=== PATIENT | female | born 1960 | race Caucasian/White ===

== ENCOUNTER → 2017-06-19 | Outpatient (CLI) | payer OTHER ==
--- NOTE | 2017-06-20 11:19 | MM ---
Reason for exam: screening (asymptomatic). Last mammogram was performed 1 year and 3 months ago. History: Patient is postmenopausal. Benign stereotactic core biopsy of the left breast, September 06, 2003. Core biopsy of the left breast. Physical Findings: A clinical breast exam by your physician is recommended on an annual basis and results should be correlated with mammographic findings. MG Screening Mammo w CAD Bilateral CC and MLO view(s) were taken. Prior study comparison: March 05, 2016, bilateral MG screening mammo w CAD. August 20, 2014, bilateral MG screening mammo w CAD. January 06, 2013, bilateral digital screening mammo w/CAD. The breast tissue is extremely dense which could obscure a lesion on mammography. Finding: There are typically benign grouped/clustered calcifications in the left breast at biopsy clip. Previous mammotome biopsy in the left breast. ASSESSMENT: Benign, BI-RAD 2 RECOMMENDATION: Routine screening mammogram of both breasts in 1 year.
== END | disposition home or self-care (01) ==
LOC: RADMAMWWP 07:13
PROVIDERS: ATTEND Family Medicine
DX: Z12.31 Encounter for screening mammogram for malignant neoplasm of breast (principal)

== ENCOUNTER 2018-05-28 10:29 | Day surgery (SDC) | payer OTHER ==
[2018-05-23 14:17] VITALS: BMI 20.8
[~2018-05-28 10:29] MED LIST: LACTATED RINGERS 1,000 ML IV SCH
[2018-05-28 11:21] VITALS: RESP 16; TEMP 97.5
[2018-05-28] MEDS ORDERED: LIDOCAINE 1% 20 ML VIAL (10MG/ML) FOR IV START INTRADERMA ONE (11:21)
[2018-05-28] MEDS ORDERED: PROPOFOL 10 MG/ML 20 ML VIAL IV ONE (12:01)
--- NOTE | 2018-05-28 12:16 | P.PCN ---
Date of Procedure: 05/28/18 Procedure(s) Performed: BRIEF HISTORY: Patient is a 57-year-old pleasant white female, scheduled for an elective colonoscopy as a part of screening for colorectal neoplasia.\ PROCEDURE PERFORMED: Colonoscopy. PREOPERATIVE DIAGNOSIS: Screening for colon cancer. IV sedation per Anesthesia. PROCEDURE: After informed consent was obtained, the patient, was brought into the endoscopy unit. IV sedation was administered by Anesthesia under continuous monitoring. Digital rectal examination was normal. Initially the Olympus CF- 160 flexible video colonoscope was then inserted in the rectum, gradually advanced into the cecum without any difficulty. Careful examination was performed as the scope was gradually being withdrawn. Ileocecal valve and the appendiceal orifice were visualized and appeared normal. Prep was excellent. Mucosa of the cecum, ascending colon, transverse colon, descending colon, sigmoid colon, and rectum appeared normal. Retroflexion was performed in the rectum and small internal hemorrhoids were seen. The patient tolerated the procedure well. IMPRESSION: Normal-appearing colon from rectum to cecum with no evidence of colorectal neoplasia . RECOMMENDATIONS: Findings of this examination were discussed with the patient as well as a family. She was advised to have a repeat screening colonoscopy in 10 years.
[2018-05-28 12:42] VITALS: BP 123/64; PULSE 72
== END 2018-05-28 13:08 | disposition home or self-care (01) ==
LOC: ORWHC2ENDO 10:29
PROVIDERS: ATTEND Internal Medicine Gastroenterology
DX: Z12.11 Encounter for screening for malignant neoplasm of colon (principal); E07.9 Disorder of thyroid, unspecified; K64.8 Other hemorrhoids; Z79.899 Other long term (current) drug therapy
CPT/HCPCS: 45378; J2704

== ENCOUNTER → 2018-09-02 | Outpatient (CLI) | payer OTHER ==
--- NOTE | 2018-09-03 11:29 | MM ---
Reason for exam: screening (asymptomatic). Last mammogram was performed 1 year and 2 months ago. History: Patient is postmenopausal. Benign stereotactic core biopsy of the left breast, September 06, 2003. Core biopsy of the left breast. Physical Findings: A clinical breast exam by your physician is recommended on an annual basis and results should be correlated with mammographic findings. MG Screening Mammo w CAD Bilateral CC and MLO view(s) were taken. Prior study comparison: June 19, 2017, bilateral MG screening mammo w CAD. March 05, 2016, bilateral MG screening mammo w CAD. The breast tissue is heterogeneously dense. This may lower the sensitivity of mammography. Previous mammotome biopsy in the left breast. No significant changes when compared with prior studies. ASSESSMENT: Negative, BI-RAD 1 RECOMMENDATION: Routine screening mammogram of both breasts in 1 year.
== END | disposition home or self-care (01) ==
LOC: RADMAMWWP 07:13
PROVIDERS: ATTEND Family Medicine
DX: Z12.31 Encounter for screening mammogram for malignant neoplasm of breast (principal)
CPT/HCPCS: 77067

== ENCOUNTER → 2019-12-15 | Outpatient (CLI) | payer OTHER ==
--- NOTE | 2019-12-16 11:44 | MM ---
Reason for exam: screening (asymptomatic). Last mammogram was performed 1 year and 3 months ago. History: Patient is postmenopausal. Benign stereotactic core biopsy of the left breast, September 06, 2003. Core biopsy of the left breast. Physical Findings: A clinical breast exam by your physician is recommended on an annual basis and results should be correlated with mammographic findings. MG 3D Screening Mammo W/Cad Bilateral CC and MLO view(s) were taken. Prior study comparison: September 02, 2018, bilateral MG screening mammo w CAD. June 19, 2017, bilateral MG screening mammo w CAD. The breast tissue is extremely dense which could obscure a lesion on mammography. No suspicious abnormality. Left biopsy marker noted. ASSESSMENT: Negative, BI-RAD 1 RECOMMENDATION: Routine screening mammogram of both breasts in 1 year.
== END | disposition home or self-care (01) ==
LOC: RADMAMWWP 07:15
PROVIDERS: ATTEND Family Medicine
DX: Z12.31 Encounter for screening mammogram for malignant neoplasm of breast (principal)
CPT/HCPCS: 77063; 77067

== ENCOUNTER → 2021-01-27 | Outpatient (CLI) | payer OTHER ==
--- NOTE | 2021-01-30 12:29 | MM ---
Reason for exam: screening (asymptomatic). Last mammogram was performed 1 year and 1 month ago. History: Patient is postmenopausal. Benign stereotactic core biopsy of the left breast, September 06, 2003. Core biopsy of the left breast. Physical Findings: A clinical breast exam by your physician is recommended on an annual basis and results should be correlated with mammographic findings. MG Screening Mammo w CAD Bilateral CC and MLO view(s) were taken. Prior study comparison: December 15, 2019, bilateral MG 3d screening mammo w/cad. September 02, 2018, bilateral MG screening mammo w CAD. The breast tissue is heterogeneously dense. This may lower the sensitivity of mammography. There is no discrete abnormality. No significant changes when compared with prior studies. ASSESSMENT: Negative, BI-RAD 1 RECOMMENDATION: Routine screening mammogram of both breasts in 1 year.
== END | disposition home or self-care (01) ==
LOC: RADMAMWWP 07:35
PROVIDERS: ATTEND Family Medicine
DX: Z12.31 Encounter for screening mammogram for malignant neoplasm of breast (principal); Z78.0 Asymptomatic menopausal state
CPT/HCPCS: 77067

== ENCOUNTER → 2022-01-29 | Outpatient (CLI) | payer OTHER ==
--- NOTE | 2022-01-30 11:45 | MM ---
Reason for exam: screening (asymptomatic). Last mammogram was performed 1 year ago. History: Patient is postmenopausal. Benign stereotactic core biopsy of the left breast, September 06, 2003. Core biopsy of the left breast. Physical Findings: A clinical breast exam by your physician is recommended on an annual basis and results should be correlated with mammographic findings. MG Screening Mammo w CAD Bilateral CC and MLO view(s) were taken. Prior study comparison: January 27, 2021, bilateral MG screening mammo w CAD. December 15, 2019, bilateral MG 3d screening mammo w/cad. The breast tissue is heterogeneously dense. This may lower the sensitivity of mammography. Previous mammotome biopsy in the left breast. There is no discrete abnormality. ASSESSMENT: Benign, BI-RAD 2 RECOMMENDATION: Routine screening mammogram of both breasts in 1 year.
== END | disposition home or self-care (01) ==
LOC: RADMAMWWP 07:21
PROVIDERS: ATTEND Family Medicine
DX: Z12.31 Encounter for screening mammogram for malignant neoplasm of breast (principal)
CPT/HCPCS: 77067

== ENCOUNTER → 2023-02-27 | Outpatient (CLI) | payer BC ==
--- NOTE | 2023-02-27 11:39 | MM ---
Reason for Exam: Screening (asymptomatic). Last mammogram was performed 1 year(s) and 1 month(s) ago. Patient History: Menarche at age 17. First Full-Term at age 31. Hysterectomy at age 46. Postmenopausal. Core Biopsy on the Left side. 09/06/2003, Benign Stereotactic Core Biopsy on the left side. Risk Values: Sumi 5 year model risk: 2.2%. NCI Lifetime model risk: 10.9%. Prior Study Comparison: 12/15/2019 Bilateral Screening Mammogram, [facility]. 01/27/2021 Bilateral Screening Mammogram, [facility]. 01/29/2022 Bilateral Screening Mammogram, [facility]. Tissue Density: The breast tissue is heterogeneously dense. This may lower the sensitivity of mammography. Findings: Analyzed By CAD. There is no suspicious group of microcalcifications or new suspicious mass in either breast. Previous mammotome biopsy in the left breast. Overall Assessment: Benign, BI-RAD 2 Management: Screening Mammogram of both breasts in 1 year. A clinical breast exam by your physician is recommended on an annual basis and results should be correlated with mammographic findings. Electronically signed and approved by: Manny Nelson D.O.
== END | disposition home or self-care (01) ==
LOC: RADMAMWWP 07:37
PROVIDERS: ATTEND Family Medicine
DX: Z12.31 Encounter for screening mammogram for malignant neoplasm of breast (principal); Z78.0 Asymptomatic menopausal state
CPT/HCPCS: 77067

== ENCOUNTER → 2023-07-29 | Outpatient (CLI) | payer BC ==
--- NOTE | 2023-07-29 09:44 | BD ---
EXAMINATION TYPE: Axial Bone Density DATE OF EXAM: 07/29/2023 CLINICAL HISTORY: 63 years old Female. ICD-10 CODE: M81.0 OSTEOPOROSIS Height: 60.8 Weight: 110 FRAX RISK QUESTIONS: nothing to note here. RISK FACTORS HISTORY OF: Postmenopausal woman: yes, at about..unsure, hyst at age 48 yrs old Hyperparathyroidism: no Adrenal Insufficiency: no MEDICATIONS: Thyroid Medications: yes, for about 20 yrs, synthroid product Osteoporosis Medications: yes, alendronate, 6 yrs Additional Medications: cholesterol meds, bp meds, vit d, Additional History: cholesterol, thyroid, osteporosis/peia, scoliosis, EXAM MEASUREMENTS: Bone mineral densitometry was performed using the [employer] System. Bone mineral density as measured about the Lumbar spine is: ----- L1-L4(G/cm2): 0.979 T Score Values are as follows: ----- L1: -2.2 ----- L2: -2.2 ----- L3: -1.4 ----- L4: -1.1 ----- L1-L4: -1.7 Z Score Values are as follows: ----- L1: -0.4 ----- L2: -0.4 ----- L3: 0.4 ----- L4: 0.6 ----- L1-L4: 0.1 Bone mineral density first dexa study at [facility]. Bone mineral density about the R hip (g/cm2): 0.782 Bone mineral density about the L hip (g/cm2): 0.821 T Score values are as follows: -----R Neck: -1.9 -----L Neck: -2.2 -----R Total: 1.8 -----L Total: -1.5 Z Score values are as follows: -----R Neck: -0.3 -----L Neck: -0.3 -----R Total: -0.5 -----L Total: -0.1 Bone mineral density first bone density at [facility]. FRAX%s: The graph provided illustrates a 9.8% chance for a major osteoporotic fx and a 1.6% chance fo r the hips probability for fx in 10 years time. IMPRESSION: Osteopenia (T Score between -2.5 and -1). There is slightly increased risk of fracture and the patient may be considered for treatment. Re-Screen 2-5 years. NOTE: T-SCORE=SD OF THE YOUNG ADULT MEAN.
== END | disposition home or self-care (01) ==
LOC: RADBDWWP 07:19
PROVIDERS: ATTEND Family Medicine
DX: M85.89 Other specified disorders of bone density and structure, multiple sites (principal); Z78.0 Asymptomatic menopausal state
CPT/HCPCS: 77080

== ENCOUNTER → 2023-10-23 | Outpatient (CLI) | payer BC ==
--- NOTE | 2023-10-24 11:01 | NM ---
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 FINDINGS: There is markedly diminished and heterogeneous uptake of activity throughout the gland. Th e 4 hour iodine uptake is calculated at 1.2% (normal range 8-14%). The 24-hour iodine uptake is calcu lated at 0.9% (normal range 15-35%). IMPRESSION: 1. Severe hypothyroid. Markedly diminished uptake throughout the bilateral thyroid greater on the lef t. Correlate with thyroid ultrasound if there is concern for thyroid nodule.
== END | disposition home or self-care (01) ==
LOC: RADNMMAIN 08:41
PROVIDERS: ATTEND Family Medicine
DX: E05.00 Thyrotoxicosis with diffuse goiter without thyrotoxic crisis or storm (principal)
CPT/HCPCS: 78014; A9516

== ENCOUNTER → 2024-08-26 | Outpatient (CLI) | payer BC ==
--- NOTE | 2024-08-26 08:03 | MM ---
Reason for Exam: Screening (asymptomatic). Last mammogram was performed 1 year(s) and 6 month(s) ago. Patient History: Menarche at age 17. First Full-Term at age 31. Hysterectomy at age 46. Postmenopausal. Core Biopsy on the Left side. 09/06/2003, Benign Stereotactic Core Biopsy on the left side. Risk Values: Sumi 5 year model risk: 2.3%. NCI Lifetime model risk: 10.3%. Prior Study Comparison: 01/27/2021 Bilateral Screening Mammogram, [facility]. 01/29/2022 Bilateral Screening Mammogram, [facility]. 02/27/2023 Bilateral MG screening mammo w CAD, [facility]. Tissue Density: The breasts are extremely dense, which lowers the sensitivity of mammography. Findings: Analyzed By CAD. Asymmetric densities in the central aspect of the breast bilaterally for which spot compression views are recommended. No suspicious grouped calcifications. Biopsy clip in the left breast is noted. Overall Assessment: Incomplete: need additional imaging evaluation, BI-RAD 0 Management: Diagnostic Mammogram of both breasts. . Patient should continue monthly self-breast exams. A clinical breast exam by your physician is recommended on an annual basis. This exam should not preclude additional follow-up of suspicious palpable abnormalities. Note on Sumi scores and lifetime risk: 1. A Sumi score greater than 3% is considered moderate risk. If this is the case, consider specialist referral to assess eligibility for a risk reducing agent. 2. If overall lifetime risk for the development of breast cancer is 20% or higher, the patient may qualify for future screening with alternating mammogram and breast MRI. [facility], , 08/26/2024 8:00 AM. Electronically signed and approved by: Meir Thorne M.D. Radiologis
[2024-08-26 10:55] LABS: Chol/HDL Ratio 2.55 Ratio; LDL Cholesterol,Calculated 110.3 mg/dL (0.0-131.0); VLDL Calculation 18.14 mg/dL (5.00-40.00)
[2024-08-26 10:56] LABS: ALT 29 U/L (8-44); AST 30 U/L (13-35); T4, Free (Free Thyroxine) 1.51 ng/dL (0.80-1.80)
== END | disposition home or self-care (01) ==
LOC: RADMAMWWP 07:35
PROVIDERS: ATTEND Family Medicine
CPT/HCPCS: 77067; 80061; 84439; 84443; 84450; 84460

== ENCOUNTER → 2024-09-07 | Outpatient (CLI) | payer BC ==
--- NOTE | 2024-09-07 09:02 | MM ---
Reason for Exam: Additional evaluation requested from abnormal screening. Last screening mammogram was performed less than 1 month ago. Patient History: Menarche at age 17. First Full-Term at age 31. Hysterectomy at age 46. Postmenopausal. Core Biopsy on the Left side. 09/06/2003, Benign Stereotactic Core Biopsy on the left side. Risk Values: Sumi 5 year model risk: 2.3%. NCI Lifetime model risk: 10.3%. Prior Study Comparison: 09/02/2018 Bilateral Screening Mammogram, [facility]. 12/15/2019 Bilateral Screening Mammogram, [facility]. 01/27/2021 Bilateral Screening Mammogram, [facility]. 01/29/2022 Bilateral Screening Mammogram, [facility]. 02/27/2023 Bilateral MG screening mammo w CAD, [facility]. 08/26/2024 Bilateral MG screening mammo w CAD, [facility]. Tissue Density: The breasts are heterogeneously dense, which may obscure small masses. Findings: Analyzed By CAD. The questioned central areas of asymmetric density on either side disperse on additional views compatible with superimposition shadow. No persisting abnormality seen. Microclip left breast from prior biopsy. Overall Assessment: Benign, BI-RAD 2 Management: Screening Mammogram of both breasts in 1 year. Results were given to the patient verbally at the time of exam. Patient should continue monthly self-breast exams. A clinical breast exam by your physician is recommended on an annual basis. This exam should not preclude additional follow-up of suspicious palpable abnormalities. Note on Sumi scores and lifetime risk: 1. A Sumi score greater than 3% is considered moderate risk. If this is the case, consider specialist referral to assess eligibility for a risk reducing agent. 2. If overall lifetime risk for the development of breast cancer is 20% or higher, the patient may qualify for future screening with alternating mammogram and breast MRI. [facility], , 09/07/2024 8:57 AM. Electronically signed and approved by: Waqar Gray M.D. Radiologist
== END | disposition home or self-care (01) ==
LOC: RADMAMWWP 08:26
PROVIDERS: ATTEND Family Medicine
CPT/HCPCS: 77062; 77066

== ENCOUNTER → 2025-01-06 | Outpatient (CLI) | payer BC ==
[2025-01-06 11:13] LABS: T4, Free (Free Thyroxine) 2.18 ng/dL (0.80-1.80)
== END | disposition home or self-care (01) ==
LOC: LABWHC1 07:26
PROVIDERS: ATTEND Family Medicine
DX: E03.9 Hypothyroidism, unspecified (principal); E55.9 Vitamin D deficiency, unspecified
CPT/HCPCS: 36415; 82306; 84439; 84443